=== PATIENT | male | born 1965 | race Caucasian/White ===

== ENCOUNTER 2017-02-14 11:05 | Emergency (ER) | payer OTHER ==
[~2017-02-14] VITALS: Ht 188 cm; Wt 86.2 kg
[2017-02-14] MEDS ORDERED: VIIB10TA PO (11:23)
[2017-02-14] MEDS ORDERED: fentaNYL 100 MCG/2 ML INJECTION (J3010) IV ONE ×4 (11:30→16:00)
[2017-02-14] MEDS ORDERED: ONDANSETRON 4MG/2ML VIAL (J2405) IV ONE (11:30)
--- NOTE | 2017-02-14 11:57 | REP ---
Clinical: Trauma. Technique: Axial noncontrast images from T12 through mid sacrum with coronal and sagittal re-formations. Findings: There is a nondisplaced fracture involving the right transverse process at L1. The patient is status post laminectomy and posterior fusion at the L3 through S1 levels. Alignment and lordosis maintained. No acute vertebral body fracture / compression injury or subluxation. With the exception of the postsurgical degenerative changes, no significant degenerative disc disease is otherwise appreciated. Spinal canal appears patent. Impression: 1. Nondisplaced right transverse process fracture at L1. 2. No further acute trauma/injury or pathology noted. 3. Evidence for prior laminectomy and posterior fusion at L3 - S1. Signed by Joseph Zimmer MD 02/14/2017 11:49 A
--- NOTE | 2017-02-14 13:46 | REP ---
Clinical: Trauma . Technique: Axial noncontrast images from the skull base to the thoracic inlet with coronal and sagittal re-formations Findings: Normal alignment and lordosis is maintained. Cervical vertebral bodies including transverse processes and spinous processes are intact and there is no evidence for acute fracture / compression injury or subluxation. Spinal canal is patent. Posterior elements are intact. Paravertebral soft tissues are normal. Impression: Age appropriate noncontrast cervical spine CT. No evidence for acute pathology or trauma/injury. Signed by Joseph Zimmer MD 02/14/2017 01:38 P
[2017-02-14] MEDS ORDERED: PERCOCET 5MG/325MG TAB PO ONE (14:00)
[2017-02-14] MEDS ORDERED: KETOROLAC 30 MG/ML VIAL (J1885) IV ONE (15:00)
[2017-02-14 15:40] VITALS: BP 147/74
[2017-02-14] MEDS ORDERED: PERC5TAB12 PO (15:55)
== END 2017-02-14 16:27 | disposition home or self-care (01) ==
LOC: M ED 11:05 → EDSEX 11:05 → M ED 16:27
DX: S32.019A Unspecified fracture of first lumbar vertebra, initial encounter for closed fracture (principal); S16.1XXA Strain of muscle, fascia and tendon at neck level, initial encounter; V43.52XA Car driver injured in collision with other type car in traffic accident, initial encounter; Y92.410 Unspecified street and highway as the place of occurrence of the external cause; Z79.899 Other long term (current) drug therapy; Z88.5 Allergy status to narcotic agent
CPT/HCPCS: 72125; 72131; 96374; 96375; 96376; 99284; J1885; J2405; J3010

== ENCOUNTER 2017-02-14 16:43 | Emergency (ER) | payer OTHER ==
[~2017-02-14 16:43] MED LIST: PERC5TAB12 PO; VIIB10TA PO
[2017-02-14 16:52] VITALS: BP 104/56
[2017-02-14] MEDS ORDERED: NS 1,000 ML IV ONE (17:30)
[2017-02-14] MEDS ORDERED: fentaNYL 100 MCG/2 ML INJECTION (J3010) IV ONE (17:30)
[2017-02-14 18:00] LABS: MEAN CORPUSCULAR HEMOGLOBIN 31.1 pg (27.0-33.0); MEAN CORPUSCULAR HGB CONC 35.1 g/dl (32.0-36.5); MEAN CORPUSCULAR VOLUME 88.6 fl (80.0-96.0); RED CELL DISTRIBUTION WIDTH 12.4 % (11.5-14.5); WHITE BLOOD COUNT 6.6 K/mm3 (4.0-10.0)
[2017-02-14 18:24] LABS: ANION GAP 7 MEQ/L (8-16); BLOOD UREA NITROGEN 12 MG/DL (7-18); CALCIUM LEVEL 9.1 MG/DL (8.5-10.1); CARBON DIOXIDE LEVEL 29 MEQ/L (21-32); CHLORIDE LEVEL 105 MEQ/L (98-107); CREATININE FOR GFR 1.27 MG/DL (0.70-1.30); GLOMERULAR FILTRATION RATE > 60.0 (>56); GLUCOSE, FASTING 128 MG/DL (70-105); POTASSIUM SERUM 4.2 MEQ/L (3.5-5.1); SODIUM LEVEL 141 MEQ/L (136-145)
--- NOTE | 2017-02-15 07:25 | ECGEPIP ---
Stationary ECG Study [facility] - ED Test Date: 2017-02-14 Pat Name: ELAINA BOUDREAUX Department: Room: - Gender: M Dyer Helper: rn : 1965 Requested By: Kierra Alba Order Number: [id number] Reading MD: Kierra Alba Measurements Intervals Dwight Rate: 41 P: 67 PA: 196 QRS: 74 QRSD: 101 T: 10 QT: 428 QTc: 357 Interpretive Statements SINUS BRADYCARDIA TALL T-WAVES, CLINICAL CORRELATION NO PRIOR FOR COMPARISON Electronically Signed On 02-15-2017 7:24:56 EDT by Kierra Alba
== END 2017-02-14 19:00 | disposition home or self-care (01) ==
LOC: M ED 16:43
DX: R55 Syncope and collapse (principal); S32.009D Unspecified fracture of unspecified lumbar vertebra, subsequent encounter for fracture with routine healing; X58.XXXD Exposure to other specified factors, subsequent encounter; Y92.89 Other specified places as the place of occurrence of the external cause; M54.9 Dorsalgia, unspecified; D33.3 Benign neoplasm of cranial nerves; Z88.5 Allergy status to narcotic agent; Z79.899 Other long term (current) drug therapy
CPT/HCPCS: 36415; 80048; 85027; 93005; 96361; 96374; 99284; J3010

== ENCOUNTER → 2025-08-15 | Outpatient (CLI) | payer BC ==
[~2025-08-15] MED LIST changes: +ISOVUE-370 76% 100 ML VIAL As Ordered ONE
== END ==
LOC: M RAD 10:53
PROVIDERS: ATTEND Internal Medicine Gastroenterology
DX: R93.89 Abnormal findings on diagnostic imaging of other specified body structures (principal)